=== PATIENT | female | born 1995 | race Caucasian/White ===

== ENCOUNTER 2025-05-24 10:29 | Inpatient (IN) | payer BC ==
[2025-05-24] MEDS ORDERED: OLANZapine 10 MG TAB PO PRN (17:26)
[2025-05-24] MEDS ORDERED: hydrOXYzine HCL 25 MG TAB PO PRN (17:26)
[2025-05-24] MEDS ORDERED: MAG HYDROX/AL HYDROX/SIMETH 355 ML BOTTLE PO PRN (17:26)
[2025-05-24] MEDS ORDERED: OLANZapine 10 MG VIAL IM PRN (17:26)
[2025-05-24] MEDS ORDERED: hydrOXYzine HCL 50 MG/ML 1 ML VIAL IM PRN (17:26)
[2025-05-24] MEDS ORDERED: IBUPROFEN 600 MG TAB PO PRN (17:26)
[2025-05-24] MEDS ORDERED: MAGNESIUM HYDROXIDE 2,400 MG/30 ML CUP PO PRN (17:26)
[2025-05-24] MEDS: PREGABALIN 100 MG CAP PO SCH (22:51)
[2025-05-25 08:42] LABS: ALT 93 U/L (4-34); AST 53 U/L (14-36); Albumin 4.4 g/dL (3.5-5.0); Alkaline Phosphatase 97 U/L (38-126); Bilirubin, Delta 0.1 mg/dL (0.0-0.2); Bilirubin,Unconjugated 0.2 mg/dL (0.0-1.1); Total Protein 7.8 g/dL (6.3-8.2)
[2025-05-25] MEDS: lamoTRIgine 25 MG TAB PO SCH (11:16)
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
[2025-05-25 15:22] LABS: Cholesterol 235.00 mg/dL (0.00-200.00); HDL Cholesterol 36.30 mg/dL (40.00-60.00); LDL Cholesterol,Calculated 161.5 mg/dL (0.0-131.0); Triglycerides 186.00 mg/dL (0.00-149.00); VLDL Calculation 37.20 mg/dL (5.00-40.00)
[2025-05-25] MEDS ORDERED: ALBUTEROL INHALER 60 PUFF/8 GM INHALER (MHU) INHALATION PRN (20:28)
--- NOTE | 2025-05-25 20:35 | P.CONS ---
History of Present Illness - Reason for Consult Consult date: 05/25/25 medical comanagement - Chief Complaint SI - History of Present Illness Eli is a 30-year-old female She is currently seen in inpatient behavioral health. She reports that she had slit her wrist on Thursday. She reports that she would slit bilateral wrist. She reports that she has been having issues with her . Reports that she has been for 13 years and she has 2 children with her . Reports that her has bipolar disorder and oftentimes she is unmedicated. She reports that when he is unmedicated he is really mean and he cheated on her. She reports that she occasionally uses cannabis., Denies any tobacco products and does not use alcohol. Her medications at home include Lyrica for which she has right lower extremity neuropathy. She reports that she occasionally cannot feel on her right lower extremity. In addition she uses albuterol inhaler as she reports that she has 3 bouts of pneumonia since October 2024. Review of Systems ROS negative except for HPI Past Medical History Additional Past Medical History / Comment(s): Cerebral palsy History of Any Multi-Drug Resistant Organisms: None Reported Past Surgical History: Section, Orthopedic Surgery Past Anesthesia/Blood Transfusion Reactions: No Reported Reaction Past Psychological History: Unable to Obtain Additional Psychological History / Comment(s): Pt denies psych hx Smoking Status: Never smoker Medications and Allergies Home Medications Medication Instructions Recorded Confirmed Type Albuterol Inhaler [Ventolin Hfa 1 - 2 puff INHALATION Q6H PRN 05/24/25 05/24/25 History Inhaler] Pregabalin [Lyrica] 100 mg PO BID 05/24/25 05/24/25 History Allergies Allergy/AdvReac Type Severity Reaction Status Date / Time azithromycin Allergy Rash/Hives Verified 05/24/25 17:24 [From Zithromax Z-Luis] Physical Exam Vitals: Vital Signs Temp Pulse Resp BP 05/25/25 09:03 98.8 F 99 18 118/84 05/24/25 21:50 18 General: non toxic, no distress, Derm: warm, dry Head: atraumatic, normocephalic, symmetric Eyes: EOMI, no lid lag, anicteric sclera, pupils equal round reactive to light ENT: Nose and ears atraumatic, no thrush, no pharyngeal erythema Neck: No thyromegaly, no cervical lymphadenopathy, trachea midline, supple Mouth: no lip lesion, mucus membranes moist Cardiovascular: S1S2 reg, no murmur Lungs: clear to ascultation bilateral Abdominal: soft, nontender to palpation, no guarding, no appreciable organomegaly, normal bowel sounds Ext: no gross muscle atrophy, Neuro: moving all extremeties spontanously. cannot feel sensation to light sensation around RLE Psych: Alert, oriented, appropriate affect Results Labs: Abnormal Lab Results - Last 24 Hours (Table) 05/25/25 Range/Units 07:15 AST 53 H (14-36) U/L ALT 93 H (4-34) U/L Triglycerides 186.00 H (0.00-149.00) mg/dL Cholesterol 235.00 H (0.00-200.00) mg/dL LDL Cholesterol, Calc 161.5 H (0.0-131.0) mg/dL HDL Cholesterol 36.30 L (40.00-60.00) mg/dL Assessment and Plan Assessment: #) SI with history of b/l wrist slitting on thursday, primary management as per psychiatry team #) RLE neuropathy, on lyrica 150 mg bid, continue #) cannabis use, recommend cesation #) history of pneumonia x3 since 10/2024. would recommend to check cxr if symptomatic. Cryotpnenic organizing pnemonia? consider steroid therapy if recurent #) class 2 obesity, weight loss recommended #) Hyperlipdiemia, LDL of 162, can consider statin therapy cbc, cmp and urine hcg pending
[2025-05-25] MEDS ORDERED: PREGABALIN 100 MG CAP PO SCH (21:00)
[2025-05-26 08:20] LABS: Basophils # (A) 0.05 10*3/uL (0.00-0.10); Basophils % (A) 0.9 %; Eosinophils # (A) 0.18 10*3/uL (0.04-0.35); Eosinophils % (A) 3.4 %; HCT 32.9 % (37.2-46.3); HGB 10.3 g/dL (12.0-15.0); Lymphocytes # (A) 1.62 10*3/uL (0.90-5.00); Lymphocytes % (A) 30.5 %; MCH 24.3 pg (27.0-32.0); MCHC 31.3 g/dL (32.0-37.0); MCV 77.8 fL (80.0-97.0); Monocytes # (A) 0.38 10*3/uL (0.20-1.00); Monocytes % (A) 7.1 %; Neutrophils # (A) 3.08 10*3/uL (1.80-7.70); Neutrophils % (A) 57.9 %; Platelet Count 327 10*3/uL (140-440); RBC 4.23 10*6/uL (4.10-5.20); RDW 13.7 % (11.5-14.5); WBC 5.32 10*3/uL (4.50-10.00)
[2025-05-26 08:36] LABS: ALT 82 U/L (4-34); AST 44 U/L (14-36); African American GFR (CKD) >90 (>60 ml/min/1.73 sqM); Albumin 4.5 g/dL (3.5-5.0); Alkaline Phosphatase 93 U/L (38-126); Anion Gap 12 mmol/L; Blood Urea Nitrogen 11 mg/dL (7-17); Calcium 9.6 mg/dL (8.4-10.2); Carbon Dioxide 23 mmol/L (22-30); Chloride 105 mmol/L (98-107); Glucose 93 mg/dL (74-99); Non-African American GFR(CKD) >90 (>60 ml/min/1.73 sqM); Potassium 4.5 mmol/L (3.5-5.1); Sodium 140 mmol/L (137-145); Total Protein 7.8 g/dL (6.3-8.2)
--- NOTE | 2025-05-26 10:29 | P.PN ---
Progress Note - Text Progress Note Date: 05/26/25 Interval History: Patient was seen in group and was directable and agreeable to speak with chart writer in the office. She has been tending to her ADLs, going to groups. She continues to express relationship difficulties with her , stating that she spoke to him on the phone and he continues to exhibit mood swings. Patient was encouraged to start therapy upon discharge to work through these relationship issues and to lean on her support network which she claims includes several family members including her mother, grandmother and siblings. She reports sleeping and eating okay. She did report some abdominal pain yesterday but denied any thus far today. At this time patient denies any suicidal or homicidal ideations, intent or plan. Patient denies any auditory, visual hallucinations and denies any paranoia or delusions. Patient denies any side effects from the medications and has been compliant with meds. Mental Status Exam: General Appearance: Patient appears to be stated age is alert, directable, and cooperative. She wears glasses with fair grooming and hygiene Behavior: Patient is calmly seated without any agitated behavior. Speech: Patient's speech is fluent and nonpressured. Mood/Affect: Mood is improving mildly, affect is congruent and blunted. Suicidality/Homicidality: Patient denies having any suicidal or homicidal ideation intent or plan. Perceptions: Patient denies any visual hallucinations and denies any auditory hallucinations Though content/process: There is no evidence of any delusional thought content and thought process is linear and goal-directed. Memory and concentration: AOX3, grossly intact for the purposes of this session Judgment and insight: Improving mildly Assessment Adjustment disorder with depressed mood Rule out major depressive disorder, recurrent Generalized anxiety disorder Plan: -Patient continues to meet criteria for inpatient psychiatric admission for symptom stabilization and safety. Patient has signed adult voluntary form and medication consent and was placed in patient's chart. -Medications: Continue Lamictal 25 mg daily for mood stabilization, Cymbalta to be increased to 60 mg daily tomorrow for depression/anxiety -When necessary seen in Zyprexa for agitation/aggression. -Labs: CBC revealed microcytic anemia, LFTs downtrending -SW on board for discharge planning. Encouraged the patient to participate in milieu. Anticipate discharge home with family on Thursday
[2025-05-26] MEDS: LORATADINE 10 MG TAB PO SCH (13:13)
[2025-05-26] MEDS: MONTELUKAST 10 MG TAB PO SCH (20:32)
[2025-05-26] MEDS: SYMBICORT 160-4.5 MCG INHALER INHALATION SCH (20:32)
[2025-05-26] MEDS: ACETAMINOPHEN TAB 325 MG TAB PO PRN (20:33)
[2025-05-27] MEDS: DULoxetine HCL 60 MG CAPSULE.DR PO SCH (08:32)
--- NOTE | 2025-05-27 14:55 | P.PN ---
Progress Note - Text Progress Note Date: 05/27/25 Dictation was produced using [employer] dictation software. Please excuse any grammatical, word or spelling errors. Interval history: Patient was seen in the hallway and was directable and agreeable to speak with the health technical writer in the office for psychiatric follow-up. The patient states that she is feeling well today, states that her mood today is "fine." States that depression is very low, which she rated at 0/10, and reported moderate anxiety which she rates at 3/10. She denied any current SI/HI or self harm, states that she had the thoughts prior to coming into the hospital, she admitted to good sleep last night, it is reported that she slept 4 hours last night. She admitted to good appetite. Denied any AVH. States that she attended all the groups. She has been compliant with her medications, denied any side effects, reported that feels tired a little. She states that she lives with mom, and husbands, and her 2 kids. Mental Status Exam: General Appearance: Patient appears to be stated age is alert, directable, and cooperative. She wears glasses with fair grooming and hygiene Behavior: Patient is calmly seated without any agitated behavior. Speech: Patient's speech is fluent and nonpressured. Mood/Affect: Mood is improving mildly, affect is congruent and blunted. Suicidality/Homicidality: Patient denies having any suicidal or homicidal ideation intent or plan. Perceptions: Patient denies any visual hallucinations and denies any auditory hallucinations Though content/process: There is no evidence of any delusional thought content and thought process is linear and goal-directed. Memory and concentration: AOX3, grossly intact for the purposes of this session Judgment and insight: Improving mildly Assessment Adjustment disorder with depressed mood Rule out major depressive disorder, recurrent Generalized anxiety disorder Assessment/Plan: Continue with current diagnosis. Patient continues to meet criteria for inpatient psychiatric admission for symptom stabilization and safety. Patient will be maintained on current psychotropic medication regimen to include Lamictal 25 mg p.o. daily, and Cymbalta 60 mg p.o daily which was increased today. Monitor for medication compliance and for any psychotropic medication side effects. Will continue to monitor ongoing response to treatment. Encouraged participation in milieu.
[2025-05-28 09:51] LABS: Bilirubin,Urine Negative (Negative); Blood,Urine Negative (Negative); Color,Urine Colorless; Glucose,Urine (UA) Negative (Negative); Ketones,Urine Negative (Negative); Leukocyte Esterase,Urine Moderate (Negative); Mucus,Urine Rare /hpf; Nitrite,Urine Negative (Negative); PH, Urine 6.5 (5.0-8.0); Protein,Urine Negative (Negative); RBC,Urine 1 /hpf (0-5); Specific Gravity,Urine 1.007 (1.001-1.035); Squamous Epithelial Cell,Urine 4 /hpf (0-4); Urobilinogen,Urine <2.0 mg/dL (<2.0); WBC,Urine 5 /hpf (0-5)
--- NOTE | 2025-05-28 12:31 | P.PN ---
Progress Note - Text Progress Note Date: 05/28/25 Dictation was produced using [employer] dictation software. Please excuse any grammatical, word or spelling errors. Interval history: Patient was seen in the [facility] and was directable and agreeable to speak with the rfp writer in the office for psychiatric follow-up. The patient states that she is feeling a little tired today, stats that she slept well last night, it is reported that she slept 7 hours last night. She admitted to good appetite. She states that depression and anxiety to be at the low side, which she rated at 0/10. She denied any current SI/HI or self harm. Denied any AVH. States that she attended all the groups. She has been compliant with her medications, denied any side effects, reported that feels tired a little. She states that she is feeling better overall with better mood. States that she is looking forward to going back home with her family. Mental Status Exam: General Appearance: Patient appears to be stated age is alert, directable, and cooperative. She wears glasses with fair grooming and hygiene Behavior: Patient is calmly seated without any agitated behavior. Speech: Patient's speech is fluent and nonpressured. Mood/Affect: Mood is improving mildly, affect is congruent and blunted. Suicidality/Homicidality: Patient denies having any suicidal or homicidal ideation intent or plan. Perceptions: Patient denies any visual hallucinations and denies any auditory hallucinations Though content/process: There is no evidence of any delusional thought content and thought process is linear and goal-directed. Memory and concentration: AOX3, grossly intact for the purposes of this session Judgment and insight: Improving mildly Assessment Adjustment disorder with depressed mood Rule out major depressive disorder, recurrent Generalized anxiety disorder Assessment/Plan: Continue with current diagnosis. Patient continues to meet criteria for inpatient psychiatric admission for symptom stabilization and safety. Patient will be maintained on current psychotropic medication regimen to include Lamictal 25 mg p.o. daily, and Cymbalta 60 mg p.o daily. Monitor for medication compliance and for any psychotropic medication side effects. Will continue to monitor ongoing response to treatment. Encouraged participation in milieu.
[2025-05-28 21:29] VITALS: TEMP 97.8
[2025-05-29 10:28] VITALS: BP 122/83; PULSE 93; RESP 16
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
== END 2025-05-29 14:33 | disposition home or self-care (01) | DRG 881 ==
LOC: 3MHU 21:20
PROVIDERS: ADMIT Psychiatry & Neurology Psychiatry; ATTEND Psychiatry & Neurology Psychiatry
DX: F43.21 Adjustment disorder with depressed mood (principal); R45.851 Suicidal ideations; E66.812 Obesity, class 2; F12.90 Cannabis use, unspecified, uncomplicated; D50.9 Iron deficiency anemia, unspecified; G80.9 Cerebral palsy, unspecified; E78.5 Hyperlipidemia, unspecified; G62.9 Polyneuropathy, unspecified; Z68.36 Body mass index [BMI] 36.0-36.9, adult; R74.01 Elevation of levels of liver transaminase levels; F41.1 Generalized anxiety disorder; Z56.0 Unemployment, unspecified; Z79.899 Other long term (current) drug therapy; Z81.8 Family history of other mental and behavioral disorders; Z87.01 Personal history of pneumonia (recurrent); Z88.1 Allergy status to other antibiotic agents
CPT/HCPCS: 80053; 80061; 80076; 81001; 81025; 83036; 84443; 85025